=== PATIENT | male | born 1965 | race Caucasian/White ===

== ENCOUNTER 2017-02-13 16:22 | Emergency (ER) | payer SELFPAY ==
--- NOTE | 2017-02-13 17:37 | ED NURSING NOTES ---
Clinical Report - Nurses [facility] [address] [place] [address] 02/13/2017 16:25 Patient: GOOD FLORES TRIAGE Triage time 16:33 Feb 13 2017. Acuity: LEVEL 4. Chief Complaint: INJURY TO THE RIGHT LEG. 16:38 02/13/17. Alert. No acute distress. SEPSIS SCREEN: Sepsis Screen. Negative (no infection suspected/documented). AMIE COMA SCORE: Amie Coma Scale: 15- eyes open spontaneously (4); best verbal response- oriented x 4 (5); best motor response- obeys commands (6). --16:38 Michelle Smiley 16:38 02/13/17. HR: 87. RR: 18. O2 saturation: 97%. Temp: 98.1 F. Pain level now 5/10. --16:38 Michelle Smiley 16:42 02/13/17. BP: 154/90. --16:42 Michelle Smiley. Weight: 138.3 kg stated. Height/Length: 73 inches Per Patient. BMI: 40.2. --16:36 Michelle Smiley. Medications None. --16:34 Michelle Smiley. Medication/allergy information source: the patient. --16:38 Michelle Smiley. Allergies NKDA. --16:34 Michelle Smiley. History Arrived by private vehicle. Historian: patient. Unaccompanied. No primary care physician. This occurred (About 1300 today). Occurred at home. He sustained a laceration. ( Pt states he was walking through the garage and hit leg against sheet metal.). No numbness, tingling, trouble walking, neck pain or back pain. 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 PAST MEDICAL HX: No history of diabetes mellitus, hypertension, heart disease or lung disease. Tetanus status: unknown. SOCIAL HX: Current some days light tobacco smoker. Occasional alcohol use. No drug use. FALL RISK ASSESSMENT: Fall risk assessment completed. No fall risk identified. NUTRITIONAL RISK ASSESSMENT: The nutritional risk assessment revealed no deficiencies. FUNCTIONAL ASSESSMENT: Functional assessment: no impairments noted. LEARNING NEEDS ASSESSMENT: The learning needs assessment revealed no barriers. SKIN INTEGRITY ASSESSMENT: Skin integrity risk assessment completed. No skin integrity risk identified. --16:38 Michelle Smiley. ADDITIONAL SURGERIES: Left and right shoulder. Left leg. --16:35 Michelle Smiley. Assessment The patient states feels the same. --16:38 Michelle Smiley. Interventions ID band on patient. --16:38 Michelle Smiley. PHYSICAL ASSESSMENT 16:38 02/13/17. Ambulatory to room. GENERAL / NEURO / PSYCH: Oriented X 4. Alert. Appears in no acute distress. EXTREMITIES: Capillary refill is less than 2 seconds in the extremities. Extremity pulses are within normal limits. Extremities exhibit normal ROM. Limping gait. Neuro-vascular status intact to the extremity. Right leg: tenderness and laceration. SKIN: Skin is warm and dry. --16:38 Michelle Smiley. NURSING PROGRESS NOTES 16:38 02/13/17. The plan of care for this patient has been created. Extremity elevated. Reassurance given. Two patient identifiers checked. Call light placed in reach. Side rails up x 1. Bed placed in lowest position. Brakes of bed on. Patient ready for evaluation- chart flagged and ED physician and PA notified. --16:38 Michelle Smiley 16:43 02/13/2017 TDAP IM 0.5 mL given. (Lot#: [id number], expiration date: 01/13/2019, [place] Department Supervisor: sanofi pasteur). Given in the right deltoid. Allergies verified and confirmed 5 rights. Vaccine information statement provided to the patient. --16:43 Michelle Smiley 17:05 02/13/2017 Lidocaine-Epinephrine (Lidocaine-Epinephrine) Injection 2 % given. (placed at bedside). --17: Michelle Smiley. DISPOSITION / DISCHARGE Departure time: 1800. Condition at departure: improved and stable. No learning barriers present. Discharge instructions provided and reviewed with the patient. Reviewed warnings. Treatments reviewed. Patient verbalized understanding. Written instructions provided in Mongolian. The patient was discharged by the physician. He was discharged home. He left the Emergency Department ambulatory and via private vehicle. Patient driving. --18:02 Tj Hanson R.N. 18:00 02/13/17. BP: 134/66 (large adult cuff) taken on the left arm, while lying. HR: 78. RR: 16. O2 saturation: 95% on room air. Temp: 98.1 F (oral). Pain level now: 11/17. --18:02 Tj Hanson R.N. Locked/Released at 02/13/2017 18:44 by Michelle Smiley,
--- NOTE | 2017-02-13 17:37 | ED NURSING NOTES ---
Clinical Report - Nurses [facility] [address] [place] [address] 02/13/2017 16:25 Patient: GOOD FLORES TRIAGE Triage time 16:33 Feb 13 2017. Acuity: LEVEL 4. Chief Complaint: INJURY TO THE RIGHT LEG. 16:38 02/13/17. Alert. No acute distress. SEPSIS SCREEN: Sepsis Screen. Negative (no infection suspected/documented). AMIE COMA SCORE: Amie Coma Scale: 15- eyes open spontaneously (4); best verbal response- oriented x 4 (5); best motor response- obeys commands (6). --16:38 Michelle Smiley 16:38 02/13/17. HR: 87. RR: 18. O2 saturation: 97%. Temp: 98.1 F. Pain level now 5/10. --16:38 Michelle Smiley 16:42 02/13/17. BP: 154/90. --16:42 Michelle Smiley. Weight: 138.3 kg stated. Height/Length: 73 inches Per Patient. BMI: 40.2. --16:36 Michelle Smiley. Medications None. --16:34 Michelle Smiley. Medication/allergy information source: the patient. --16:38 Michelle Simley. Allergies NKDA. --16:34 Michelle Smiley. History Arrived by private vehicle. Historian: patient. Unaccompanied. No primary care physician. This occurred (About 1300 today). Occurred at home. He sustained a laceration. ( Pt states he was walking through the garage and hit leg against sheet metal.). No numbness, tingling, trouble walking, neck pain or back pain. 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 PAST MEDICAL HX: No history of diabetes mellitus, hypertension, heart disease or lung disease. Tetanus status: unknown. SOCIAL HX: Current some days light tobacco smoker. Occasional alcohol use. No drug use. FALL RISK ASSESSMENT: Fall risk assessment completed. No fall risk identified. NUTRITIONAL RISK ASSESSMENT: The nutritional risk assessment revealed no deficiencies. FUNCTIONAL ASSESSMENT: Functional assessment: no impairments noted. LEARNING NEEDS ASSESSMENT: The learning needs assessment revealed no barriers. SKIN INTEGRITY ASSESSMENT: Skin integrity risk assessment completed. No skin integrity risk identified. --16:38 Michelle Smiley. ADDITIONAL SURGERIES: Left and right shoulder. Left leg. --16:35 Michelle Smiley. Assessment The patient states feels the same. --16:38 Michelle Smiley. Interventions ID band on patient. --16:38 Michelle Smiley. PHYSICAL ASSESSMENT 16:38 02/13/17. Ambulatory to room. GENERAL / NEURO / PSYCH: Oriented X 4. Alert. Appears in no acute distress. EXTREMITIES: Capillary refill is less than 2 seconds in the extremities. Extremity pulses are within normal limits. Extremities exhibit normal ROM. Limping gait. Neuro-vascular status intact to the extremity. Right leg: tenderness and laceration. SKIN: Skin is warm and dry. --16:38 Michelle Smiley. NURSING PROGRESS NOTES 16:38 02/13/17. The plan of care for this patient has been created. Extremity elevated. Reassurance given. Two patient identifiers checked. Call light placed in reach. Side rails up x 1. Bed placed in lowest position. Brakes of bed on. Patient ready for evaluation- chart flagged and ED physician and PA notified. --16:38 Michelle Smiley 16:43 02/13/2017 TDAP IM 0.5 mL given. (Lot#: [id number], expiration date: 01/13/2019, Vet Assistant: sanofi pasteur). Given in the right deltoid. Allergies verified and confirmed 5 rights. Vaccine information statement provided to the patient. --16:43 Michelle Smiley 17:05 02/13/2017 Lidocaine-Epinephrine (Lidocaine-Epinephrine) Injection 2 % given. (placed at bedside). --17: Michelle Smiley. DISPOSITION / DISCHARGE Departure time: 1800. Condition at departure: improved and stable. No learning barriers present. Discharge instructions provided and reviewed with the patient. Reviewed warnings. Treatments reviewed. Patient verbalized understanding. Written instructions provided in Romansh. The patient was discharged by the physician. He was discharged home. He left the Emergency Department ambulatory and via private vehicle. Patient driving. --18:02 Tj Hanson R.N. 18:00 02/13/17. BP: 134/66 (large adult cuff) taken on the left arm, while lying. HR: 78. RR: 16. O2 saturation: 95% on room air. Temp: 98.1 F (oral). Pain level now: 11/17. --18:02 Tj Hanson R.N. Locked/Released at 02/13/2017 18:44 by Michelle Smiley,
--- NOTE | 2017-02-13 17:37 | ED ORDER SUMMARY ---
..... Patient: GOOD FLORES OrderSheet [facility] VisitID: [id number] [address] [place] [address] 52y, M Registration Date/Time: 02/13/2017 ORDER SHEET Weight: 138.3 kg (stated) Allergies: NKDA GENERAL ORDERS: Irrigate Wounds (16:46 02/13/2017 Parmjit Silveira) (17:02 ASchmuck) Suture Set-up: (16:46 02/13/2017 Parmjit Silveira) (Ack 17:02 ASchmuck) (17:05 ASchmuck) Dress Wounds (baci) (17:36 02/13/2017 Parmjit Silveira) (Ack 17:53 ASchmuck) (17:59 Gurmeet R.N.) MEDICATION ORDERS: Tdap IM 0.5 mL (NOW, per protocol) (16:42 02/13/2017 ASchmuck per protocol) (16:43 ASchmuck) Lidocaine-Epinephrine Injection 1% (place at bedside) (16:46 02/13/2017 Parmjti Silveira) (Ack 17:02 ASchmuck) (17:05 ASchmuck) IV FLUIDS: ORDER SHEET NOTES: [Electronically signed by Kurt Gil Dr. (18:25 02/13/2017)] [Electronically signed by Michelle Smiley (18:44 02/13/2017)] [Electronically locked/signed by Michelle Smiley (18:44 02/13/2017)]
--- NOTE | 2017-02-13 17:37 | ED CLINICAL REPORT ---
Clinical Report - Physicians/Mid Levels [facility] [address] [place] [place] [address] 02/13/2017 16:25 Patient: GOOD FLORES Time Seen: 1640; initial patient contact. Arrived- By private vehicle. Historian- patient. HISTORY OF PRESENT ILLNESS Chief Complaint: Injury to right leg. The injury happened today. Occurred at home. The patient sustained a laceration from a sharp edge (sheet metal). Patient is experiencing mild pain. Patient denies injury to the head or neck. No other injury. REVIEW OF SYSTEMS The patient sustained a laceration. No swelling, tingling, weakness, numbness or suspected foreign body. He has no pain on weight bearing. All systems otherwise negative, except as recorded above. PAST HISTORY See nurses notes. Tetanus immunization status is unknown. Medications: None. Allergies: NKDA. SOCIAL HISTORY Smoker- current status unknown. Alcohol use. No drug use. Is a local resident. ADDITIONAL NOTES The nursing notes have been reviewed. PHYSICAL EXAM Vital Signs: 02/13/2017 16:42 BP: 154/90. 02/13/2017 16:38 HR: 87. RR: 18. O2 saturation: 97%. Temp: 98.1 F. Oxygen saturation normal. Appearance: Alert. Oriented X3. No acute distress. Head: Head atraumatic. Neck: Normal inspection. Neck supple. C-spine non-tender. CVS: Normal heart rate and rhythm. Pulses normal. Respiratory: No respiratory distress. Breath sounds normal. Chest nontender. No rales, rhonchi or wheezes. Abdomen: No visible injury. Soft and nontender. Bowel sounds normal. Skin: Skin intact. Skin warm and dry. Normal skin color. Normal skin turgor. Extremities: (5 cm lac to the right lateral lower leg. no active bleeding. no FB. Full thickness. no muscle/tendon involvement. no gross contamination. neuro vasc intact distal. compartments soft). Extremities otherwise negative. Gait: Normal gait. Neuro: No motor deficit. No sensory deficit. PROGRESS AND PROCEDURES Laceration Repair: Location: (right distal lower leg). Wound depth/shape- subcutaneous. Distal neuro/vascular/tendon status normal. Local anesthesia provided using 1% lidocaine with epi. Prepped with chlorhexidine. Wound explored, cleansed, irrigated and examined to the base in bloodless field extensively with normal saline. Closure of skin: interrupted 4-0 (8 sutures). Post-procedure: he is stable and there are no complications. Bleeding is controlled and neuro-vascular status is intact distal to the wound. Dressing applied. Tetanus immunization given. Estimated blood loss: 1 mL. Course of Care: patient with laceration to the right lower extremity. No neurovascular compromise. No tendon involvement. Tetanus updated in the emergency department. Informed verbal consent obtained for procedure. Please see procedure note for further details. Discussed with patient his workup here in the emergency department including diagnosis, home care, follow-up, and return precautions. Particularly discussed wound infection versus precautions. All questions have been answered. The patient expressed understanding of these instructions and was agreeable to them. Disposition: Discharged. Condition: good. CLINICAL IMPRESSION Single deep laceration to the right lower leg. (acute). No foreign body present. INSTRUCTIONS (Keep dry for 24 hours. May wash with mild soap and warm water afterwards. No Soaking. Stitches come out it 7 - 10 days.). Warnings: GENERAL WARNINGS: Return or contact your physician immediately if your condition worsens or changes unexpectedly, if not improving as expected, or if other problems arise. Specifically return if pain, vomiting, bleeding, breathing difficulty or fever. Your Current Medications: CONTINUE TAKING THE FOLLOWING MEDICATIONS: None*. OTC Medications: Acetaminophen (available over the counter): take according to label instructions. Motrin (available over the counter): take according to label instructions. Follow-up: Return to the emergency department as needed. Follow up with your doctor in three days. Reason for referral: recheck today's concerns. Summary of care provided to patient via paper. Screening today revealed the patient's blood pressure to be in the normal range. The patient should follow up with a primary care provider for blood pressure management. Understanding of the discharge instructions verbalized by patient. (Electronically signed by Kurt Gil Dr. 02/13/2017 18:25)
--- NOTE | 2017-02-13 17:37 | ED ORDER SUMMARY ---
..... Patient: GOOD FLORES OrderSheet [facility] VisitID: [id number] [address] [place] [address] 52y, M Registration Date/Time: 02/13/2017 ORDER SHEET Weight: 138.3 kg (stated) Allergies: NKDA GENERAL ORDERS: Irrigate Wounds (16:46 02/13/2017 Parmjit Silveira) (17:02 ASchmuck) Suture Set-up: (16:46 02/13/2017 Parmjit Silveira) (Ack 17:02 ASchmuck) (17:05 ASchmuck) Dress Wounds (baci) (17:36 02/13/2017 Parmjit Silveira) (Ack 17:53 ASchmuck) (17:59 Gurmeet R.N.) MEDICATION ORDERS: Tdap IM 0.5 mL (NOW, per protocol) (16:42 02/13/2017 ASchmuck per protocol) (16:43 ASchmuck) Lidocaine-Epinephrine Injection 1% (place at bedside) (16:46 02/13/2017 Parmjit Silveira) (Ack 17:02 ASchmuck) (17:05 ASchmuck) IV FLUIDS: ORDER SHEET NOTES: [Electronically signed by Kurt Gil Dr. (18:25 02/13/2017)] [Electronically signed by Michelle Smiley (18:44 02/13/2017)] [Electronically locked/signed by Michelle Smiley (18:44 02/13/2017)]
--- NOTE | 2017-02-13 18:44 | ED MAR SUMMARY ---
..... Medication Administration Record [address] [place] [address] Patient: GOOD FLORES Visit ID: [id number] 52y, M Weight: 138.3 kg Height/Length: 73 in BMI: 40.2 ALLERGIES: NKDA Given 16:43 02/13/2017 Michelle Smiley, Medication Administered: TDAP [IM], Dose: 0.5 mL IM. Medication Ordered: Tdap IM 0.5 mL (NOW, per protocol). Given 17:05 02/13/2017 Michelle Smiley, Medication Administered: LIDOCAINE-EPINEPHRINE [INJECTION] (LIDOCAINE-EPINEPHRINE), Dose: 2 % Injection. Medication Ordered: Lidocaine-Epinephrine Injection 1% (place at bedside).
--- NOTE | 2017-02-13 18:44 | ED MED RECONCILIATION SUMMARY ---
Patient: GOOD FLORES Medication Reconciliation Report [facility] VisitID: [id number] [address] [place] [address] 52y, M Registration Date/Time: 02/13/2017 Weight: 138.3 kg Height/Length: 73 in. BMI: 40.2 ALLERGIES: NKDA The patient's Home Medications are listed below: NONE. The source(s) of the original Home Medication information: patient The following Medications were given to the patient in the Emergency Department: TDAP [IM] IM 0.5 mL, administered: 02/13/2017 4:43:00 PM Lidocaine-Epinephrine [Injection] Injection 2 %, administered: 02/13/2017 5:05:00 PM The following Medications were prescribed to the patient: Acetaminophen (available over the counter): take according to label instructions. -- Kurt Gil Dr. Motrin (available over the counter): take according to label instructions. -- Kurt Gil Dr.
--- NOTE | 2017-02-13 18:44 | ED DISCHARGE INSTRUCTIONS ---
Patient: GOOD FLORES General Instructions [facility] VisitID: [id number] [address] [place] [address] 52y, M Registration Date/Time: 02/13/2017 Single deep laceration to the right lower leg. (acute). No foreign body present. INSTRUCTIONS (Keep dry for 24 hours. May wash with mild soap and warm water afterwards. No Soaking. Stitches come out it 7 - 10 days.). Warnings: GENERAL WARNINGS: Return or contact your physician immediately if your condition worsens or changes unexpectedly, if not improving as expected, or if other problems arise. Specifically return if pain, vomiting, bleeding, breathing difficulty or fever. Your Current Medications: CONTINUE TAKING THE FOLLOWING MEDICATIONS: None*. OTC Medications: Acetaminophen (available over the counter): take according to label instructions. Motrin (available over the counter): take according to label instructions. Follow-up: Return to the emergency department as needed. Follow up with your doctor in three days. Reason for referral: recheck today's concerns. Summary of care provided to patient via paper. Screening today revealed the patient's blood pressure to be in the normal range. The patient should follow up with a primary care provider for blood pressure management. Understanding of the discharge instructions verbalized by patient. ADDITIONAL INFORMATION Laceration, Extremity (Sutures, [place], Or Tape) A laceration is a cut through the skin. This will usually require stitches (sutures) or chyna if it is deep. Minor cuts may be treated with surgical tape closures. Home care The following guidelines will help you care for your laceration at home: Keep the wound clean and dry. If a bandage was applied and it becomes wet or dirty, replace it. Otherwise, leave it in place for the first 24 hours, then change it once a day or as directed. If stitches or chyna were used, clean the wound daily: After removing the bandage, wash the area with soap and water. Use a wet cotton swab to loosen and remove any blood or crust that forms. After cleaning, keep the wound clean and dry. Talk with your doctor before applying any antibiotic ointment to the wound. Reapply the bandage. You may remove the bandage to shower as usual after the first 24 hours, but do not soak the area in water (no swimming) until the stitches or chyna are removed. If surgical tape closures were used, keep the area clean and dry. If it becomes wet, blot it dry with a towel. The doctor may prescribe an antibiotic cream or ointment to prevent infection. Do not stop taking this medication until you have finished the prescribed course or the doctor tells you to stop. The doctor may also prescribe medications for pain. Follow the doctors instructions for taking these medications. If you have chronic liver or kidney disease or ever had a stomach ulcer or GI bleeding, talk with your doctor before using these medicines. Follow-up care Follow up with your health care provider. Most skin wounds heal within ten days. However, an infection may sometimes occur despite proper treatment. Therefore, check the wound daily for the signs of infection listed below. Stitches and chyna should be removed within 714 days. If surgical tape closures were used, you may remove them after 10 days, if they have not fallen off by then. Notify your doctor if you notice persistent numbness or weakness in the injured extremity. (Note:A radiologist will review any X-rays that were taken. We will notify you of any new findings that may affect your care.) When to seek medical care Get prompt medical attention if any of these occur: Increasing pain in the wound Redness, swelling, or pus coming from the wound Fever of 100.4F (38C) or higher, or as directed by your health care provider If stitches or chyna come apart or fall out before your next appointment If the surgical tape closures fall off within seven days, or the wound edges re-open Bleeding not controlled by direct pressure You have been given the following additional information: Laceration, Extrem (Suture, Staple, Or Tape) (Electronically signed by Kurt Gil Dr. 02/13/2017 18:25)
--- NOTE | 2017-02-13 18:44 | ED MAR SUMMARY ---
..... Medication Administration Record [address] [place] [address] Patient: GOOD FLORES Visit ID: [id number] 52y, M Weight: 138.3 kg Height/Length: 73 in BMI: 40.2 ALLERGIES: NKDA Given 16:43 02/13/2017 Michelle Smiley, Medication Administered: TDAP [IM], Dose: 0.5 mL IM. Medication Ordered: Tdap IM 0.5 mL (NOW, per protocol). Given 17:05 02/13/2017 Michelle Smiley, Medication Administered: LIDOCAINE-EPINEPHRINE [INJECTION] (LIDOCAINE-EPINEPHRINE), Dose: 2 % Injection. Medication Ordered: Lidocaine-Epinephrine Injection 1% (place at bedside).
--- NOTE | 2017-02-13 18:44 | ED MED RECONCILIATION SUMMARY ---
Patient: GOOD FLORES Medication Reconciliation Report [facility] VisitID: [id number] [address] [place] [address] 52y, M Registration Date/Time: 02/13/2017 Weight: 138.3 kg Height/Length: 73 in. BMI: 40.2 ALLERGIES: NKDA The patient's Home Medications are listed below: NONE. The source(s) of the original Home Medication information: patient The following Medications were given to the patient in the Emergency Department: TDAP [IM] IM 0.5 mL, administered: 02/13/2017 4:43:00 PM Lidocaine-Epinephrine [Injection] Injection 2 %, administered: 02/13/2017 5:05:00 PM The following Medications were prescribed to the patient: Acetaminophen (available over the counter): take according to label instructions. -- Kurt Gil Dr. Motrin (available over the counter): take according to label instructions. -- Kurt Gil Dr.
== END 2017-02-13 18:00 | disposition home or self-care (01) ==
LOC: ED SRH 16:22
DX: S81.811A Laceration without foreign body, right lower leg, initial encounter (principal); W26.8XXA Contact with other sharp object(s), not elsewhere classified, initial encounter; Y93.01 Activity, walking, marching and hiking; Y92.019 Unspecified place in single-family (private) house as the place of occurrence of the external cause; Y99.8 Other external cause status; Z23 Encounter for immunization